=== PATIENT | female | born 1985 | race Two or more races ===

== ENCOUNTER 2017-05-18 09:29 | Day surgery (SDC) | payer OTHER ==
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
[2017-05-18] MEDS ORDERED: ceFAZolin 2 GM/DEXTROSE 100 ML IV ONE (09:40)
[2017-05-18] MEDS ORDERED: PREGABALIN 150 MG CAP PO ONE (09:40)
[2017-05-18] MEDS ORDERED: LR 1,000 ML IV ONE (09:55)
[2017-05-18] MEDS ORDERED: LIDOCAINE 1% 2 ML INJ ID PRN (09:55)
[2017-05-18] MEDS ORDERED: BUPIVACAINE/EPI 0.25% 30 ML SDV ONE (10:22)
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
[2017-05-18] MEDS ORDERED: SCOPOLAMINE HYDROBROMIDE 1.5 MG PATCH TD ONE (10:26)
[2017-05-18] MEDS ORDERED: MIDAZOLAM 2 MG/2 ML VIAL IVP ONE (10:27)
[2017-05-18] MEDS ORDERED: fentaNYL 100 MCG/2 ML INJ ONE ×4 (10:32→14:48)
[2017-05-18] MEDS ORDERED: PROPOFOL 200 MG/20 ML VIAL ONE ×4 (10:32→13:14)
[2017-05-18] MEDS ORDERED: KETAMINE 100 MG/10 ML SYR ONE (10:33)
[2017-05-18] MEDS ORDERED: ROCURONIUM 50 MG/5 ML VIAL ONE ×2 (10:36→11:39)
[2017-05-18] MEDS ORDERED: LIDOCAINE 2% 5 ML SDV ONE (10:36)
[2017-05-18] MEDS ORDERED: DEXAMETHASONE 4 MG/ML VIAL ONE ×2 (11:40)
[2017-05-18] MEDS ORDERED: OXYCODONE/APAP 5/325 TAB PO PRN (11:59)
[2017-05-18] MEDS ORDERED: HYDROmorphONE/DILAUDID 1 MG/ML SYR IVP PRN (11:59)
[2017-05-18] MEDS ORDERED: ONDANSETRON 4 MG/2 ML VIAL IVP PRN (11:59)
[2017-05-18] MEDS ORDERED: NALOXONE HCL 0.4 MG/ML INJ IVP PRN (11:59)
[2017-05-18] MEDS ORDERED: MEPERIDINE 25 MG/ML SYR IVP PRN (11:59)
[2017-05-18] MEDS ORDERED: LR 500 ML IV PRN (11:59)
[2017-05-18] MEDS ORDERED: ONDANSETRON 4 MG/2 ML VIAL ONE (13:26)
[2017-05-18] MEDS ORDERED: SUGAMMADEX SODIUM 200 MG/2 ML VIAL IVP ONE (13:26)
[2017-05-18] MEDS ORDERED: DIAZEPAM 5 MG TAB PO PRN (14:45)
[2017-05-18] MEDS ORDERED: HYDROmorphONE/DILAUDID 1 MG/ML SYR ONE (14:48)
[2017-05-18] MEDS: fentaNYL 100 MCG/2 ML INJ IVP PRN ×2 (14:50→15:13)
[2017-05-18 15:29] VITALS: TEMP 96.8
[2017-05-18 16:03] VITALS: BP 100/73; PULSE 80; RESP 17; O2SAT 97
--- NOTE | 2017-05-18 16:28 | POSTANESTH ---
Post Anesthetic Evaluation Cardiovascular Status: Normal, Stable Respiratory Status: Normal, Stable Level of Consciousness/Mental Status: Can Participate in Eval Pain Control: Adequate, Prn Tx Ordered Nausea/Vomiting Control: Adequate, Prn Tx Ordered
[2017-05-21] MEDS ORDERED: PATCH REMOVAL 1 EA PATCH TD SCH (10:26)
== END 2017-05-18 17:10 | disposition home or self-care (01) ==
LOC: FSGY 09:29
PROVIDERS: ATTEND Orthopaedic Surgery Sports Medicine
PROC: 0SQ94ZZ Repair Right Hip Joint, Percutaneous Endoscopic Approach (ICD-10-PCS; principal; 2017-05-18 11:00)
DX: M24.851 Other specific joint derangements of right hip, not elsewhere classified (principal); M70.71 Other bursitis of hip, right hip; S73.004S Unspecified dislocation of right hip, sequela; G43.909 Migraine, unspecified, not intractable, without status migrainosus
CPT/HCPCS: 29916; 76001; C1769; C1713; J0171; J0690; J1100; J1170; J2250; J2405; J2704; J3010